=== PATIENT | female | born 1995 | race Two or more races ===

== ENCOUNTER 2024-08-05 16:01 | Emergency (ER) | payer SELFPAY ==
[2024-08-05 16:11] VITALS: BP 103/68
[2024-08-05 16:30] LABS: % Basophils 0.8 % (0-2); % Immature Granulocytes 0.2 % (0-0.5); % Lymphocytes 16.9 % (20.5-51.1); % Monocytes 6.5 % (1.7-9.3); % Neutrophils 73.6 % (42.2-75.2); Absolute Basophils 0.1 10^3/uL (0-0.2); Absolute Eosinophils 0.1 10^3/uL (0-0.7); Absolute Lymphocytes 1.1 10^3/uL (1.2-3.4); Absolute Monocytes 0.4 10^3/uL (0.1-0.6); Absolute Neutrophils 4.8 10^3/uL (1.4-6.5); Hematocrit 36.8 % (37.0-47.0); Hemoglobin 12.9 g/dL (12.0-16.0); Mean Corp Hgb Conc. 35.1 g/dL (33.0-37.0); Mean Corpuscular Hgb 29.9 pg (27.0-31.0); Mean Corpuscular Volume 85.4 fL (81.0-99.0); Mean Platelet Volume 10.3 fL (7.4-10.4); Nucleated Red Blood Cells % 0 %; Platelet Count 199 10^3/uL (130-400); Red Blood Cell Count 4.31 10^6/uL (4.20-5.40); White Blood Cell Count 6.5 10^3/uL (4.8-10.8)
[2024-08-05 16:37] LABS: HCG, Serum Qualitative Screen Positive
[2024-08-05 16:45] LABS: ALT (SGPT) 11 U/L (0-35); AST (SGOT) 16 U/L (14-36); Albumin 4.9 g/dl (3.5-5.0); Alkaline Phosphatase 36 U/L (38-126); Blood Urea Nitrogen 14 mg/dl (7-17); Calcium 9.5 mg/dl (8.4-10.2); Carbon Dioxide 24 mmol/L (22-30); Chloride 108 mmol/L (98-107); Glucose 106 mg/dl (70-99); Potassium 4.4 mmol/L (3.5-5.1); Sodium 142 mmol/L (135-145); Total Bilirubin 0.7 mg/dl (0.2-1.3); Total Protein 8.3 g/dl (6.3-8.2); eGFR > 60.00
--- NOTE | 2024-08-05 18:56 | ED.GENMED ---
History of Present Illness
<Lenka Hoskins MD, Resident - Last Filed: 08/05/24 18:57>
General
Chief Complaint: Problems
Time Seen by Provider: 08/05/24 19:08
<Sherly Ring PA-C - Last Filed: 08/06/24 10:38>
General
Source: patient
Exam Limitations: none
History of Present Illness
History of Present Illness:
28yo female with no significant past medical history presenting for evaluation of abdominal pain. She had a positive home test 4 days ago. She has been experiencing a 'bladder pain' that is described as a pulling sensation. Pain is
located in the suprapubic and RLQ regions. She also reports some nausea. She had some vaginal spotting 2 days ago and thought she might be getting her menstrual period but it was only a light pink and did not last more than a day. She denies any
vaginal discharge or fevers. LMP at end of June.
Phy Exam
<Sherly Ring PA-C - Last Filed: 08/06/24 10:38>
General Physical Exam
General Presentation: well appearing and no apparent distress
General Skin: warm and dry
General Habitus: normal
General Mental: alert
ENT Exam
ENT Exam: normocephalic
Pulmonary Exam
Pulmonary Exam: no respiratory distress
Gastrointestinal Exam
Gastrointestinal Exam: soft, non distended, no cva tenderness and other (Mild tenderness in suprapubic and RLQ. No rebound or guarding. No CVA tenderness. )
Neurological Exam
Neurological Exam: alert
Hillary Coma Scale
Eye Opening: Spontaneous
Verbal Response: Oriented
Motor Response: Obeys Commands
GCS Total Score: 15
Skin Exam
Skin Exam: normal color and warm/dry
Psychiatric Exam
Psychiatric Exam: normal mood/affect
Course
<Lenka Hoskins MD, Resident - Last Filed: 08/05/24 18:57>
Orders/Labs/Results
Orders:
Orders
08/05/24 16:15
Test Result ONCE
08/05/24 16:22
Complete Blood Count/With Diff Urgent
Comprehensive Metabolic Panel Urgent
HCG, Beta Quantitative [Beta HCG Quantitative] Urgent
Is this a screen?: No
HCG, Serum Qualitative Screen Urgent
08/05/24 19:23
US W Transvaginal Urgent
Comment:
Reason For Exam: RLQ pain, + test
08/05/24 20:37
Type+Screen Urgent
Urinalysis Reflex To Culture Urgent
Date Specimen was Collected: 08/05/24
Time Specimen was Collected: 20:28
Urine Microscopic Reflex Cult Urgent
08/05/24 21:37
ABO2 Urgent
BBK Wristband Number:
Associate notified that ABO2 has been ordered: [id number]
Date: 08/05/24
Time: 21:07
Metaphysician ID: [id number]
Abnormal Lab Results
08/05/24 08/05/24
16:22 20:37
Hct 36.8 L %
(37.0-47.0)
Absolute Lymphs (auto) 1.1 L 10^3/uL
(1.2-3.4)
Lymphocytes % 16.9 L %
(20.5-51.1)
Chloride 108 H mmol/L
(98-107)
Creatinine 0.5 L mg/dL
(0.6-1.0)
Glucose 106 H mg/dl
(70-99)
Alkaline Phosphatase 36 L U/L
(38-126)
Total Protein 8.3 H g/dl
(6.3-8.2)
Ur Occult Blood Reflex 1+ A
(Negative)
Urine RBC 3-6 A /HPF
(0-2)
Urine Albumin (Reflex) 1+ A
(Neg - Trace)
08/05/24 16:22
08/05/24 16:22
Vital Signs
Initial and Last Documented VS:
Initial Vital Signs
Temp Pulse Resp BP Pulse Ox
98 F 89 16 103/68 97
08/05/24 16:11 08/05/24 16:11 08/05/24 16:11 08/05/24 16:11 08/05/24 16:11
Last Documented Vital Signs
Temp Pulse Resp BP Pulse Ox
98 F 78 16 105/78 99
08/05/24 16:11 08/05/24 22:00 08/05/24 22:00 08/05/24 22:00 08/05/24 22:00
[place];Sherly Ring PA-C - Last Filed: 08/06/24 10:38>
Orders/Labs/Results
Orders:
Orders
08/05/24 16:15
Test Result ONCE
08/05/24 16:22
Complete Blood Count/With Diff Urgent
Comprehensive Metabolic Panel Urgent
HCG, Beta Quantitative [Beta HCG Quantitative] Urgent
Is this a screen?: No
HCG, Serum Qualitative Screen Urgent
08/05/24 19:23
US W Transvaginal Urgent
Comment:
Reason For Exam: RLQ pain, + test
08/05/24 20:37
Type+Screen Urgent
Urinalysis Reflex To Culture Urgent
Date Specimen was Collected: 08/05/24
Time Specimen was Collected: 20:28
Urine Microscopic Reflex Cult Urgent
08/05/24 21:37
ABO2 Urgent
BBK Wristband Number:
Associate notified that ABO2 has been ordered: [id number]
Date: 08/05/24
Time: 21:07
Metaphysician ID: [id number]
Abnormal Lab Results
08/05/24 08/05/24
16:22 20:37
Hct 36.8 L %
(37.0-47.0)
Absolute Lymphs (auto) 1.1 L 10^3/uL
(1.2-3.4)
Lymphocytes % 16.9 L %
(20.5-51.1)
Chloride 108 H mmol/L
(98-107)
Creatinine 0.5 L mg/dL
(0.6-1.0)
Glucose 106 H mg/dl
(70-99)
Alkaline Phosphatase 36 L U/L
(38-126)
Total Protein 8.3 H g/dl
(6.3-8.2)
Ur Occult Blood Reflex 1+ A
(Negative)
Urine RBC 3-6 A /HPF
(0-2)
Urine Albumin (Reflex) 1+ A
(Neg - Trace)
08/05/24 16:22
08/05/24 16:22
Vital Signs
Initial and Last Documented VS:
Initial Vital Signs
Temp Pulse Resp BP Pulse Ox
98 F 89 16 103/68 97
08/05/24 16:11 08/05/24 16:11 08/05/24 16:11 08/05/24 16:11 08/05/24 16:11
Last Documented Vital Signs
Temp Pulse Resp BP Pulse Ox
98 F 78 16 105/78 99
08/05/24 16:11 08/05/24 22:00 08/05/24 22:00 08/05/24 22:00 08/05/24 22:00
Information
Weeks gestation: Weeks: (6)
Location: Location: (intrauterine)
<Sherly Ring PA-C - Last Filed: 08/06/24 10:38>
MDM/Problems Addressed
Differential Diagnosis Includes:
28yoF here with 'bladder pain' and nausea. Positive home test 4 days ago. Had spotting 2 days ago but no currently bleeding. VSS. She is well appearing in no distress. No signs of peritonitis on abdominal exam. Differential diagnosis
includes: UTI, ectopic , less likely appendicitis
Initial ED plan: Labs obtained in triage. Quantitative HCG 40K. Will check blood typing, UA, and pelvic ultrasound.
<Lenka Hoskins MD, Resident - Last Filed: 08/05/24 18:57>
*Pulse Oximetry
SaO2: 97
Oxygen Mode of Delivery: Room air
<Sherly Ring PA-C - Last Filed: 08/06/24 10:38>
*Pulse Oximetry
Patient hypoxic: no (97%)
*Critical Care Note
Total Time (30-74mins, 75-104mins- exclusive of procedures): Not Applicable
<Sherly Ring PA-C - Last Filed: 08/06/24 10:38>
Update Note
Update Note:
Blood type is B+, no indication for Rhogam. No signs of infection on urinalysis. Ultrasound shows live IUP measuring 6w2d. There is also a small complex cyst to R ovary. No indication for hospitalization. She was given contact information for OBGYN
and advised to call tomorrow to schedule a f/u appt. Patient discharged in stable condition.
ED Attending Note
<Lenka Hoskins MD, Resident - Last Filed: 08/05/24 18:57>
-
Portions of this chart may have been created with voice recognition software.� Occasional wrong word or��sound alike� substitutions may have occurred due to the inherent limitations of voice recognition software.
Discharge Plan
Departure
Patient Disposition: Home (Routine Discharge)
Date of Disposition: 08/05/24
Time of Disposition: 22:29
Patient with high blood pressure during this ER visit?: No
Discharge Problem:
Abdominal pain during in first trimester, Cyst of right ovary
Instructions: symptoms
Referrals:
Miky Woody MD [Active, Gynecology]
NONE,* [Family Provider, Internal Medicine]
Activity Restrictions/Additional Instructions:
Please call tomorrow to schedule an appointment with OBGYN. Return to the ER with any worsening symptoms or severe pain.
Interventions
Interventions:
*Risk Screen - Suicide Last Done: 08/05/24 16:15
*General Assessment Last Done: 08/05/24 20:49
*Neglect/Abuse Screening Last Done: 08/05/24 16:15
*ED- Fall Risk Assessment Last Done: 08/05/24 20:49
*Nursing Disposition Last Done: 08/05/24 22:40
ED-Female Genitourinary Assessment Last Done: 08/05/24 20:49
Discharge Date and Time
Discharge Date/Time: 08/05/24 22:47
Print Language: MONGOLIAN
[2024-08-05 20:40] VITALS: BP 106/61
[2024-08-05 20:54] LABS: Urine Albumin 1+ (Neg - Trace); Urine Bilirubin Negative (Negative); Urine Character Clear (Clear); Urine Color Yellow; Urine Glucose Negative (Negative); Urine Ketone Negative (Negative); Urine Leukocyte Negative (Negative); Urine Nitrite Negative (Negative); Urine Occult Blood 1+ (Negative); Urine Urobilinogen Negative (Neg - 1+)
[2024-08-05 22:00] VITALS: BP 105/78
== END 2024-08-05 22:47 | disposition home or self-care (01) ==
LOC: EMR 16:01
PROVIDERS: Emergency Medicine; Physician Assistant; EMERGENCY PHYSICIAN Student in an Organized Health Care Education/Training Program
DX: O26.891 Other specified pregnancy related conditions, first trimester (principal); R10.2 Pelvic and perineal pain; O34.81 Maternal care for other abnormalities of pelvic organs, first trimester; N83.201 Unspecified ovarian cyst, right side; Z3A.01 Less than 8 weeks gestation of pregnancy
CPT/HCPCS: 99284; 76801; 76817; 80053; 81003; 81015; 84702; 84703; 85025; 86850; 86900; 86901

== ENCOUNTER 2024-09-20 23:47 | Emergency (ER) | payer OTHER, SELFPAY ==
[2024-09-20 23:51] VITALS: BP 103/53; BMI 18.9
[2024-09-20 23:58] VITALS: BP 115/54
[2024-09-21] VITALS: BP 103/53
[2024-09-21 00:32] LABS: Urine Character Clear (Clear)
[2024-09-21 00:38] LABS: ALT (SGPT) 12 U/L (0-35); AST (SGOT) 18 U/L (14-36); Albumin 4.5 g/dl (3.5-5.0); Alkaline Phosphatase 61 U/L (38-126); Blood Urea Nitrogen 8 mg/dl (7-17); Calcium 9.5 mg/dl (8.4-10.2); Carbon Dioxide 24 mmol/L (22-30); Chloride 108 mmol/L (98-107); Estimated Creatinine Clearance 110 ml/min; Glucose 88 mg/dl (70-99); Potassium 4.0 mmol/L (3.5-5.1); Sodium 139 mmol/L (135-145); Total Protein 7.4 g/dl (6.3-8.2); eGFR > 60.00
[2024-09-21 00:43] LABS: Hematocrit 33.9 % (37.0-47.0); Hemoglobin 11.9 g/dL (12.0-16.0); Mean Corp Hgb Conc. 35.1 g/dL (33.0-37.0); Mean Corpuscular Volume 84.1 fL (81.0-99.0); Nucleated Red Blood Cells % 0 %; Platelet Count 211 10^3/uL (130-400); Red Cell Dist. Width 11.9 % (11.5-14.5)
[2024-09-21] MEDS: NSS 1000 IV (01:01)
--- NOTE | 2024-09-21 01:07 | ED.GENMED ---
History of Present Illness
General
Chief Complaint: Problems
Source: patient and previous hospital records (ED visit August 05 with similar complaints of right lower quadrant pain, vaginal bleeding. Ultrasound at that time showed IUP 6 weeks 2 days. Right ovarian cyst.)
Exam Limitations: none and other (Patient's primary language is [place], language line bilingual interpreter utilized.)
Time Seen by Provider: 09/21/24 00:10
Nursing documentation reviewed up to this point in time: agreed with
History of Present Illness
History of Present Illness:
The patient is a 28-year-old female, 3 para 2, currently 13 weeks according to a prior ultrasound on August 05, which showed she was six weeks and two days at that time. She is presenting with recurrent right lower quadrant
abdominal pain and some vaginal bleeding. The pain began after dinner, primarily localized in the right lower abdomen, and has been described as episodic since July. The patient also reports associated back pain and occasional nausea but no episodes
of diarrhea or constipation. The pain was noted to be better at presentation but not fully resolved. There is no dysuria, hematuria, or fever reported.
The patient was previously seen with similar symptoms on August 05, accompanied by a pelvic ultrasound revealing a complex 2.2 cm right ovarian cyst. This small complex cyst in the right ovary suggestive of corpus luteal cyst versus hemorrhagic
cyst versus endometrioma. The possibility of ovarian torsion, cyst recurrence, or growing uterine pain was discussed. Concern for a possible kidney stone was also raised, considering the back pain.
She takes no medicines on a daily basis.
She has an initial appointment with [facility] at [facility] scheduled for September 27.
2 previous vaginal deliveries reportedly complicated by hemorrhage requiring blood transfusion and IV fluids.
Past History
Past History
ED Past Medical History: Other (Ovarian cyst)
ED Past Surgical History: Appendectomy
Social History
Tobacco: Non-smoker
Alcohol: None
Personal:
Living: with family
Family History
Family History: Other (Noncontributory)
Phy Exam
Physical Exam
Physical Exam:
GENERAL: 28-year-old woman appears her stated age, bright and alert, pleasant, appears in no acute distress. Accompanied by her and 2 small children.
EYE: anicteric
NECK: Supple, nontender, no meningismus, no significant adenopathy.
ENT: oral mucosa is moist. No rhinorrhea.
CARDIAC: Regular rate and rhythm. no murmur.
LUNGS: Clear breath sounds bilaterally, no acute respiratory distress, no wheezes/rales/rhonchi
ABDOMEN: Gravid, soft, nondistended, moderate tenderness right lower quadrant/right pelvic region. Gravid uterus approximately 2 cm above symphysis pubis, minimally tender to palpation, no r/g, mild bilateral CVA tenderness, normoactive BS. There
is no inguinal tenderness nor palpable inguinal mass nor adenopathy. No tenderness to the upper abdomen.
NEUROLOGICAL: Alert and oriented x3, no focal neuro deficits.
SKIN: Warm and dry, normal color, skin intact. No rash.
MUSCULOSKELETAL: No C/C/E. peripheral pulses are full and equal b/l. No palpable tenderness.
PSYCH: Normal and appropriate interaction.
Course
Orders/Labs/Results
Orders:
Orders
09/21/24 00:07
Beta HCG Quantitative Urgent
Comment: ADDED
Complete Blood Count/With Diff Urgent
Comprehensive Metabolic Panel Urgent
Urinalysis Reflex To Culture Urgent
Date Specimen was Collected: 09/21/24
Time Specimen was Collected: 00:05
Urine Microscopic Reflex Cult Urgent
09/21/24 00:14
Add On- LAB Urgent
Tests Added?: beta hcg quantitative
09/21/24 00:47
0.9% Sodium Chloride 1000 ml [Nss] 1,000 ml IV BOLUS
w/ Transvaginal US [US W Transvaginal] Urgent
Comment:
Reason For Exam: 13 wk preg. severe R pelvic pain, vag bleeding
09/21/24 00:49
Renal & Bladder US [US Renal With Bladder] Urgent
Comment:
Reason For Exam: acute severe RLQ to right back pain
Abnormal Lab Results
09/21/24
00:07
RBC 4.03 L 10^6/uL
(4.20-5.40)
Hgb 11.9 L g/dL
(12.0-16.0)
Hct 33.9 L %
(37.0-47.0)
Neutrophils % 76.2 H %
(42.2-75.2)
Lymphocytes % 15.2 L %
(20.5-51.1)
Chloride 108 H mmol/L
(98-107)
Creatinine 0.4 L mg/dL
(0.6-1.0)
Ur Occult Blood Reflex 2+ A
(Negative)
Urine RBC 3-6 A /HPF
(0-2)
Urine Bacteria (Reflex) Few A
(Negative)
09/21/24 00:07
09/21/24 00:07
Vital Signs
Initial and Last Documented VS:
Initial Vital Signs
Temp Pulse Resp BP Pulse Ox
98.9 F 100 16 103/53 98
09/20/24 23:51 09/20/24 23:51 09/20/24 23:51 09/20/24 23:51 09/20/24 23:51
Last Documented Vital Signs
Temp Pulse Resp BP Pulse Ox
98.9 F 84 18 110/64 98
09/20/24 23:51 09/21/24 03:06 09/21/24 03:06 09/21/24 03:06 09/21/24 03:06
Information
Weeks gestation: Weeks: (13)
Location: Location: (IUP)
MDM/Problems Addressed
Differential Diagnosis Includes:
The Differential Diagnosis includes, in no particular order and is not limited to:
1. Ovarian cyst
2. Ovarian torsion
3. Early complications
4. Round ligament pain
5. Urinary tract infection
6. Renal colic due to kidney stones
7. Gastrointestinal issues
8. Musculoskeletal strain
9. labor
Plan:
1. Obtain a pelvic ultrasound to evaluate for ovarian cyst, possible ovarian torsion, and assess status.
2. Conduct a renal ultrasound to exclude possible kidney stones.
3. IV fluids initiated, with instructions to maintain a full bladder for ultrasound imaging.
4. Routine labs, urinalysis.
Previous ED visit reveals patient's blood type B+. No indication to repeat, no indication for RhoGAM.
*Radiology
Radiology exam reviewed: radiology read reviewed (Ultrasound shows single IUP 13 weeks gestation. heart rate 152. Normal bilateral ovaries. Renal ultrasound is unremarkable. No hydronephrosis. Ureteral jets are visualized bilaterally.)
*Pulse Oximetry
SaO2: 99
Oxygen Mode of Delivery: Room air
Patient hypoxic: no
*Critical Care Note
Total Time (30-74mins, 75-104mins- exclusive of procedures): Not Applicable
Update Note
Update Note:
04:00
Renal as well as ultrasound are all within normal limits. Reassuring.
Pelvic ultrasound shows single live IUP at 13 weeks, consistent with previous ultrasound August 05. Bilateral ovaries are normal.
Renal ultrasound is unremarkable, no hydronephrosis, bilateral ureteral jets are noted.
Labs are unremarkable.
I suspect discomforts of , round ligament discomfort.
Less likely threatened miscarriage.
Will discharge to home with recommendation for follow-up with [facility] as already scheduled.
Return precautions discussed.
ED Attending Note
-
Portions of this chart may have been created with voice recognition software.� Occasional wrong word or��sound alike� substitutions may have occurred due to the inherent limitations of voice recognition software.
Discharge Plan
Departure
Patient Disposition: Home (Routine Discharge)
Date of Disposition: 09/21/24
Time of Disposition: 03:58
Patient with high blood pressure during this ER visit?: No
Condition: Good
Discharge Problem:
Abdominal pain during in second trimester, 13 weeks gestation of
Instructions: - The Fourth Month, Round Ligament Pain
Prescriptions:
New
Prenatabs Rx 29 mg iron- 1 mg tablet
1 tab PO DAILY Qty: 90 1RF
Referrals:
UNKNOWN - PT DOES,NOT KNOW [Family Provider]
Gardenia Castillo MD [Active, Gynecology] - Keep scheduled appt
Interventions
Interventions:
*Risk Screen - Suicide Last Done: 09/20/24 23:51
*General Assessment Last Done: 09/20/24 23:51
*Neglect/Abuse Screening Last Done: 09/20/24 23:51
*ED- Fall Risk Assessment Last Done: 09/20/24 23:51
*ED COVID-19 Vaccine History Last Done: 09/21/24 04:07
*Nursing Disposition Last Done: 09/21/24 04:07
ED-Female Genitourinary Assessment Last Done: 09/21/24 01:24
Discharge Date and Time
Discharge Date/Time: 09/21/24 04:18
Print Language: [place]
[2024-09-21 01:29] LABS: Urine Squamous Cell 26-30 /LPF (Few)
[2024-09-21 01:30] LABS: Urine White Cell None Seen /HPF (0-5)
[2024-09-21 01:31] VITALS: BP 101/62
[2024-09-21 02:13] LABS: Beta HCG Quantitative 106320.00 mIU/ml
[2024-09-21 03:06] VITALS: BP 110/64
== END 2024-09-21 04:18 | disposition home or self-care (01) ==
LOC: EMR 23:47
PROVIDERS: EMERGENCY PHYSICIAN Emergency Medicine
DX: O99.891 Other specified diseases and conditions complicating pregnancy (principal); R10.31 Right lower quadrant pain; Z3A.13 13 weeks gestation of pregnancy; Z90.49 Acquired absence of other specified parts of digestive tract
CPT/HCPCS: 99284; 96360; 76770; 76801; 76817; 80053; 81003; 81015; 84702; 85025